=== PATIENT | female | born 1970 | race Caucasian/White ===

== ENCOUNTER 2016-08-09 14:38 | Emergency (ER) | payer BC, SELFPAY ==
[2016-08-09] MEDS ORDERED: ONDANSETRON 4 MG ORAL DISINTEGRATING TAB (S0181) As Ordered ONE (15:10)
--- NOTE | 2016-08-09 15:15 | EDDOCDS ---
Nurse's Notes [facility] Name: Audelia Lopez Age: 45 yrs Sex: Female : 1970 Arrival Date: 08/09/2016 Time: 14:38 Bed Triage 1 Private MD: Brian Wood MD Diagnosis: Nausea and vomiting;Diarrhea, unspecified Presentation: 08/09 14:40 Presenting complaint: Patient states: n/v/d since yesterday afternoon. Generalized abd ttb pain. Adult Sepsis Screening: The patient does not have new or worsening altered mentation. Patient's respiratory rate is less than 22. Systolic blood pressure is greater than 100. Patient has a qSOFA score of 0- Negative Sepsis Screen. 14:40 Acuity: AMEYA Level 3 ttb 14:41 Suicide/Homicide risk assessment- the patient denies having any suicidal and/or ttb homicidal ideations and does not present with any other emotional, behavioral or mental health complaints. Status: Patient is not a client services associate or dependent. Transition of care: patient was not received from another setting of care. 14:41 Method Of Arrival: Walkin/Carried/Asstd ttb Triage Assessment: 14:44 General: Appears in no apparent distress, well nourished, well groomed, Behavior is ttb appropriate for age, cooperative, pleasant. Pain: Location: abd pain 12/07. HIV screening NA for this visit Offered previously. Neurological: Level of Consciousness is awake, alert. Cardiovascular: Chest pain is denied. Respiratory: No deficits noted. Airway is patent Respiratory effort is even, unlabored, Denies cough, shortness of breath. GI: Reports diarrhea, lower abdominal pain, upper abdominal pain, nausea, vomiting. Derm: Skin is normal. 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 multivitamin Oral cap daily (Last dose: 08/09/2016 07:00) 2. metoprolol tartrate 50 mg Oral tab 1 tab 2 times per day (Last dose: 08/08/2016) 3. levothyroxine 125 mcg Oral tab 1 tab once daily (Last dose: 08/08/2016 07:00) - PMHx: Migraines; Hypothyroidism; Hypertension; - PSHx: Cesearean Section; Hysterectomy; Tonsillectomy; Adenoidectomy; discectomy; - Social history: Smoking status: Patient states was never smoker of tobacco. Patient/guardian denies using alcohol, street drugs, No barriers to communication noted, The patient speaks fluent Cambodian, Speaks appropriately for age. - Family history: Not pertinent. - : The pt / caregiver states he / she is not on anticoagulants. Home medication list is obtained from the patient. - Exposure Risk Screening:: None identified. Screenin:11 Screening information is obtained from the patient. Fall risk: No risks identified. js13 Assistance ADL's: requires no assistance with activities of daily living. Abuse/DV Screen: The patient / caregiver reports he/she is: not in a situation that causes fear, pain or injury. Nutritional screening: No deficits noted. Advance Directives: There is no active DNR order. home support is adequate. Assessment: 15:13 GI: Abdomen is obese, Bowel sounds present X 4 quads. Abd is soft and non tender. js13 Vital Signs: 14:40 BP 139 / 85; Pulse 132; Resp 17; Temp 98.8(T); Pulse Ox 97% on R/A; Weight 90.72 kg; lr2 Height 5 ft. 4 in. (162.56 cm); Pain 6/10; 14:40 Body Mass Index 34.33 (90.72 kg, 162.56 cm) lr2 Vitals: 14:40 Log In Time: August 09, 2016 at 14:38. lr2 ED Course: 14:39 Patient visited by Mahi Owens. lr2 14:39 Brian Wood is Private Physician. lr2 14:39 Patient moved to Waiting lr2 14:40 Patient moved to Pre RCE lr2 14:41 Triage Initiated ttb 14:48 Patient moved to Triage 1 js13 15:01 Stephane Schmitt PA is PHCP. btw 15:01 Silvina Ortiz MD is Attending Physician. btw 15:01 Patient visited by Stephane Schmitt PA. btw 15:09 Brian Wood is Referral Physician. btw 15:11 The patient / caregiver is instructed regarding the plan of care and ED course. js13 15:11 No IV's were initiated during this patient's visit. No procedures done that require js13 assistance. Administered Medications: 15:10 Drug: Ondansetron ODT 4 mg [ondansetron 4 mg disintegrating tablet (1 tabs)] Route: PO; js13 15:14 Follow up: Response: Pt left department before re-evaluation is appropriate js13 Order Results: There are currently no results for this order. Outcome: 15:09 Discharge ordered by Provider. bt 15:11 Discharge Assessment: Patient awake, alert and oriented x 3. No cognitive and/or js13 functional deficits noted. Patient verbalized understanding of disposition instructions. patient administered narcotics - no. The following High Risk Discharge criteria are identified: None. Discharged to home ambulatory. Condition: stable. Discharge instructions given to patient, Instructed on discharge instructions, follow up and referral plans. medication usage, Demonstrated understanding of instructions, medications, Pt was receptive of discharge instructions/ teaching. Prescriptions given X 1. No special radiology studies were completed. Property :Personal belongings accompany Pt. 15:13 Patient left the ED. js13 Signatures: Stephane Schmitt PA PA btToya Maynard RN RN js13 Marleny Silverman RN RN blancab Mahi Owens2 GLORIA
--- NOTE | 2016-08-09 15:15 | EDDOCDS ---
Physician Documentation [facility] Name: Audelia Lopez Age: 45 yrs Sex: Female : 1970 Arrival Date: 08/09/2016 Time: 14:38 Bed Triage 1 Private MD: Brian Wood MD Disposition: 08/09/16 15:09 Discharged to Home/Self Care. Impression: Nausea and vomiting, Diarrhea, unspecified. - Condition is Stable. - Discharge Instructions: Viral Gastroenteritis, [id number]. - Prescriptions for ZOFRAN ODT 4 mg - dissolve 1 tablet by ORAL route 4 times per day As needed do not chew, do not swallow whole; 10 tablet. - Medication Reconciliation, Local Pharmacy Hours form. - Follow up: Brian Wood; When: Call to arrange an appointment; Reason: Further diagnostic work-up, Recheck today's complaints, Continuance of care. - Problem is new. - Symptoms are unchanged. Historical: - Allergies: PENICILLINS; Symbicort; CEPHALOSPORINS; - Home Meds: 1. multivitamin Oral cap daily (Last dose: 08/09/2016 07:00) 2. metoprolol tartrate 50 mg Oral tab 1 tab 2 times per day (Last dose: 08/08/2016) 3. levothyroxine 125 mcg Oral tab 1 tab once daily (Last dose: 08/08/2016 07:00) - PMHx: Migraines; Hypothyroidism; Hypertension; - PSHx: Cesearean Section; Hysterectomy; Tonsillectomy; Adenoidectomy; discectomy; - Social history: Smoking status: Patient states was never smoker of tobacco. Patient/guardian denies using alcohol, street drugs, No barriers to communication noted, The patient speaks fluent Beninese, Speaks appropriately for age. - Family history: Not pertinent. - : The pt / caregiver states he / she is not on anticoagulants. Home medication list is obtained from the patient. - Exposure Risk Screening:: None identified. 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 4 in. (162.56 cm); Pain 6/10; 14:40 Body Mass Index 34.33 (90.72 kg, 162.56 cm) lr2 MDM: 15:09 Ondansetron ODT Oral Disintegrating Tablet 4 mg PO once ordered. btw 15:09 Financial registration complete. lg Administered Medications: 15:10 Drug: Ondansetron ODT 4 mg [ondansetron 4 mg disintegrating tablet (1 tabs)] Route: PO; js13 15:14 Follow up: Response: Pt left department before re-evaluation is appropriate js13 Signatures: Seven Carmichael, Reg Reg lg Stephane Schmitt PA PA btw Toya Starks,RN RN js13 Marleny Silverman, RN RN ttb MTDD
--- NOTE | 2016-08-11 16:14 | EDDOCDS ---
Physician Documentation [facility] Name: Audelia Lopez Age: 45 yrs Sex: Female : 1970 Arrival Date: 08/09/2016 Time: 14:38 Bed Triage 1 Private MD: Brian Wood MD Disposition: 08/09/16 15:09 Discharged to Home/Self Care. Impression: Nausea and vomiting, Diarrhea, unspecified. - Condition is Stable. - Discharge Instructions: Viral Gastroenteritis, [id number]. - Prescriptions for ZOFRAN ODT 4 mg - dissolve 1 tablet by ORAL route 4 times per day As needed do not chew, do not swallow whole; 10 tablet. - Medication Reconciliation, Local Pharmacy Hours form. - Follow up: Brian Wood; When: Call to arrange an appointment; Reason: Further diagnostic work-up, Recheck today's complaints, Continuance of care. - Problem is new. - Symptoms are unchanged. Historical: - Allergies: PENICILLINS; Symbicort; CEPHALOSPORINS; - Home Meds: 1. multivitamin Oral cap daily (Last dose: 08/09/2016 07:00) 2. metoprolol tartrate 50 mg Oral tab 1 tab 2 times per day (Last dose: 08/08/2016) 3. levothyroxine 125 mcg Oral tab 1 tab once daily (Last dose: 08/08/2016 07:00) - PMHx: Migraines; Hypothyroidism; Hypertension; - PSHx: Cesearean Section; Hysterectomy; Tonsillectomy; Adenoidectomy; discectomy; - Social history: Smoking status: Patient states was never smoker of tobacco. Patient/guardian denies using alcohol, street drugs, No barriers to communication noted, The patient speaks fluent Welsh, Speaks appropriately for age. - Family history: Not pertinent. - : The pt / caregiver states he / she is not on anticoagulants. Home medication list is obtained from the patient. - Exposure Risk Screening:: None identified. 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 4 in. (162.56 cm); Pain 6/10; 14:40 Body Mass Index 34.33 (90.72 kg, 162.56 cm) lr2 MDM: 15:09 Ondansetron ODT Oral Disintegrating Tablet 4 mg PO once ordered. btw 15:09 Financial registration complete. lg 15:22 [facility] Payment Agreement was scanned into [employer] and attached to record. lg 08/10 11:51 T-Sheet-- Draft Copy was scanned into [employer] and attached to record. gb Administered Medications: 08/09 15:10 Drug: Ondansetron ODT 4 mg [ondansetron 4 mg disintegrating tablet (1 tabs)] Route: PO; js13 15:14 Follow up: Response: Pt left department before re-evaluation is appropriate js13 Signatures: Mona Baxter, Reg Reg gb Seven Carmichael, Reg Reg lg Stephane Schmitt PA PA btw Toya Starks,RN RN js13 Marleny Silverman, RN RN ttb The chart was reviewed and I authenticate all verbal orders and agree with the evaluation and treatment provided.Attachments: 15:22 [facility] Payment Agreement lg 08/10 11:51 T-Sheet-- Draft Copy gb Chart Complete MTDD
--- NOTE | 2016-08-11 16:14 | EDDOCDS ---
Physician Documentation [facility] Name: Audelia Lopez Age: 45 yrs Sex: Female : 1970 Arrival Date: 08/09/2016 Time: 14:38 Bed Triage 1 Private MD: Brian Wood MD Disposition: 08/09/16 15:09 Discharged to Home/Self Care. Impression: Nausea and vomiting, Diarrhea, unspecified. - Condition is Stable. - Discharge Instructions: Viral Gastroenteritis, [id number]. - Prescriptions for ZOFRAN ODT 4 mg - dissolve 1 tablet by ORAL route 4 times per day As needed do not chew, do not swallow whole; 10 tablet. - Medication Reconciliation, Local Pharmacy Hours form. - Follow up: Brian Wood; When: Call to arrange an appointment; Reason: Further diagnostic work-up, Recheck today's complaints, Continuance of care. - Problem is new. - Symptoms are unchanged. Historical: - Allergies: PENICILLINS; Symbicort; CEPHALOSPORINS; - Home Meds: 1. multivitamin Oral cap daily (Last dose: 08/09/2016 07:00) 2. metoprolol tartrate 50 mg Oral tab 1 tab 2 times per day (Last dose: 08/08/2016) 3. levothyroxine 125 mcg Oral tab 1 tab once daily (Last dose: 08/08/2016 07:00) - PMHx: Migraines; Hypothyroidism; Hypertension; - PSHx: Cesearean Section; Hysterectomy; Tonsillectomy; Adenoidectomy; discectomy; - Social history: Smoking status: Patient states was never smoker of tobacco. Patient/guardian denies using alcohol, street drugs, No barriers to communication noted, The patient speaks fluent Lithuanian, Speaks appropriately for age. - Family history: Not pertinent. - : The pt / caregiver states he / she is not on anticoagulants. Home medication list is obtained from the patient. - Exposure Risk Screening:: None identified. 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 4 in. (162.56 cm); Pain 6/10; 14:40 Body Mass Index 34.33 (90.72 kg, 162.56 cm) lr2 MDM: 15:09 Ondansetron ODT Oral Disintegrating Tablet 4 mg PO once ordered. btw 15:09 Financial registration complete. lg 15:22 [facility] Payment Agreement was scanned into [employer] and attached to record. lg 08/10 11:51 T-Sheet-- Draft Copy was scanned into [employer] and attached to record. gb Administered Medications: 08/09 15:10 Drug: Ondansetron ODT 4 mg [ondansetron 4 mg disintegrating tablet (1 tabs)] Route: PO; js13 15:14 Follow up: Response: Pt left department before re-evaluation is appropriate js13 Signatures: Mona Baxter, Reg Reg gb Seven Carmichael, Reg Reg lg Stephane Schmitt PA PA btw Toya Starks,RN RN js13 Marleny Silverman, RN RN ttb The chart was reviewed and I authenticate all verbal orders and agree with the evaluation and treatment provided.Attachments: 15:22 [facility] Payment Agreement lg 08/10 11:51 T-Sheet-- Draft Copy gb Chart Complete MTDD
--- NOTE | 2016-08-11 16:15 | EDDOCDS ---
Nurse's Notes [facility] Name: Audelia Lopez Age: 45 yrs Sex: Female : 1970 Arrival Date: 08/09/2016 Time: 14:38 Bed Triage 1 Private MD: Brian Wood MD Diagnosis: Nausea and vomiting;Diarrhea, unspecified Presentation: 08/09 14:40 Presenting complaint: Patient states: n/v/d since yesterday afternoon. Generalized abd ttb pain. Adult Sepsis Screening: The patient does not have new or worsening altered mentation. Patient's respiratory rate is less than 22. Systolic blood pressure is greater than 100. Patient has a qSOFA score of 0- Negative Sepsis Screen. 14:40 Acuity: AMEYA Level 3 ttb 14:41 Suicide/Homicide risk assessment- the patient denies having any suicidal and/or ttb homicidal ideations and does not present with any other emotional, behavioral or mental health complaints. Status: Patient is not a fiscal services director or dependent. Transition of care: patient was not received from another setting of care. 14:41 Method Of Arrival: Walkin/Carried/Asstd ttb Triage Assessment: 14:44 General: Appears in no apparent distress, well nourished, well groomed, Behavior is ttb appropriate for age, cooperative, pleasant. Pain: Location: abd pain 12/07. HIV screening NA for this visit Offered previously. Neurological: Level of Consciousness is awake, alert. Cardiovascular: Chest pain is denied. Respiratory: No deficits noted. Airway is patent Respiratory effort is even, unlabored, Denies cough, shortness of breath. GI: Reports diarrhea, lower abdominal pain, upper abdominal pain, nausea, vomiting. Derm: Skin is normal. 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 multivitamin Oral cap daily (Last dose: 08/09/2016 07:00) 2. metoprolol tartrate 50 mg Oral tab 1 tab 2 times per day (Last dose: 08/08/2016) 3. levothyroxine 125 mcg Oral tab 1 tab once daily (Last dose: 08/08/2016 07:00) - PMHx: Migraines; Hypothyroidism; Hypertension; - PSHx: Cesearean Section; Hysterectomy; Tonsillectomy; Adenoidectomy; discectomy; - Social history: Smoking status: Patient states was never smoker of tobacco. Patient/guardian denies using alcohol, street drugs, No barriers to communication noted, The patient speaks fluent Citizen Of [place], Speaks appropriately for age. - Family history: Not pertinent. - : The pt / caregiver states he / she is not on anticoagulants. Home medication list is obtained from the patient. - Exposure Risk Screening:: None identified. Screenin:11 Screening information is obtained from the patient. Fall risk: No risks identified. js13 Assistance ADL's: requires no assistance with activities of daily living. Abuse/DV Screen: The patient / caregiver reports he/she is: not in a situation that causes fear, pain or injury. Nutritional screening: No deficits noted. Advance Directives: There is no active DNR order. home support is adequate. Assessment: 15:13 GI: Abdomen is obese, Bowel sounds present X 4 quads. Abd is soft and non tender. js13 Vital Signs: 14:40 BP 139 / 85; Pulse 132; Resp 17; Temp 98.8(T); Pulse Ox 97% on R/A; Weight 90.72 kg; lr2 Height 5 ft. 4 in. (162.56 cm); Pain 6/10; 14:40 Body Mass Index 34.33 (90.72 kg, 162.56 cm) lr2 Vitals: 14:40 Log In Time: August 09, 2016 at 14:38. lr2 ED Course: 14:39 Patient visited by Mahi Owens. lr2 14:39 Brian Wood is Private Physician. lr2 14:39 Patient moved to Waiting lr2 14:40 Patient moved to Pre RCE lr2 14:41 Triage Initiated ttb 14:48 Patient moved to Triage 1 js13 15:01 Stephane Schmitt PA is PHCP. btw 15:01 Silvina Ortiz MD is Attending Physician. btw 15:01 Patient visited by Stephane Schmitt PA. btw 15:09 Brian Wood is Referral Physician. btw 15:11 The patient / caregiver is instructed regarding the plan of care and ED course. js13 15:11 No IV's were initiated during this patient's visit. No procedures done that require js13 assistance. 15:20 Patient name changed from Audelia\S\\S\[place]\S\ to Audelia\S\[place]\S\John. EDMS 15:22 [facility] Payment Agreement was scanned into [employer] and attached to record. 02 11:51 T-Sheet-- Draft Copy was scanned into [employer] and attached to record. gb Administered Medications: 08/09 15:10 Drug: Ondansetron ODT 4 mg [ondansetron 4 mg disintegrating tablet (1 tabs)] Route: PO; js13 15:14 Follow up: Response: Pt left department before re-evaluation is appropriate js13 Order Results: There are currently no results for this order. Outcome: 15:09 Discharge ordered by Provider. btw 15:11 Discharge Assessment: Patient awake, alert and oriented x 3. No cognitive and/or js13 functional deficits noted. Patient verbalized understanding of disposition instructions. patient administered narcotics - no. The following High Risk Discharge criteria are identified: None. Discharged to home ambulatory. Condition: stable. Discharge instructions given to patient, Instructed on discharge instructions, follow up and referral plans. medication usage, Demonstrated understanding of instructions, medications, Pt was receptive of discharge instructions/ teaching. Prescriptions given X 1. No special radiology studies were completed. Property :Personal belongings accompany Pt. 15:13 Patient left the ED. js13 Signatures: Dispatcher [employer] EDMS Mona Baxter, Reg Reg gb Seven Carmichael, Reg Reg lg Stephane Schmitt PA PA btw Sullivan, JenniferRN RN js13 Marleny Silverman RN RN Mahi Price2 Chart Complete MTDD
== END 2016-08-09 15:13 | disposition home or self-care (01) ==
LOC: M ED 14:38
DX: R11.2 Nausea with vomiting, unspecified (principal); R19.7 Diarrhea, unspecified; G43.909 Migraine, unspecified, not intractable, without status migrainosus; E03.9 Hypothyroidism, unspecified; I10 Essential (primary) hypertension; Z79.899 Other long term (current) drug therapy; Z88.0 Allergy status to penicillin; Z88.1 Allergy status to other antibiotic agents; Z88.8 Allergy status to other drugs, medicaments and biological substances